=== PATIENT | female | born 1940 | race Caucasian/White ===

== ENCOUNTER 2020-09-15 02:49 | Inpatient (IN) | payer OTHER, BC ==
[~2020-09-15] VITALS: Ht 160 cm; Wt 44.5 kg
[2020-09-15 02:52] VITALS: BP 187/83
[2020-09-15] MEDS ORDERED: ALPRAZOLAM 0.50.5 M1 PO (05:25)
[2020-09-15] MEDS ORDERED: AMLODIPINE BESY10 MG PO (05:26)
[2020-09-15] MEDS ORDERED: LISINOPRIL10 MG PO (05:29)
[2020-09-15] MEDS ORDERED: NAPROSYN500 MG PO (05:29)
[2020-09-15] MEDS ORDERED: HUMIRA PEN40 MG/0.4 (05:29)
[2020-09-15] MEDS ORDERED: ZOCOR 20 MG TAB20 M1 PO (05:29)
[2020-09-15 06:41] LABS: HEMATOCRIT 39.9 % (37.0-47.0); HEMOGLOBIN 13.4 gm/dL (12.0-15.0); MCH 31.2 pg (26.0-34.0); MCHC 33.7 g/dL (28.0-37.0); MCV 92.8 fL (80.0-100.0); PLATELET COUNT 414 thou/uL (150-400); RDW 13.3 % (10.5-14.5); WBC 20.6 thou/uL (4.0-11.0)
[2020-09-15 06:52] LABS: CALCIUM 9.6 mg/dL (8.5-10.1); CREATININE 0.8 mg/dL (0.6-1.0); POTASSIUM 3.8 mmol/L (3.5-5.1)
--- NOTE | 2020-09-15 07:23 | EKG ---
[place] [address] [address] [facility] [place] [address] ELECTROCARDIOGRAM REPORT Name: PEDRITO CHOU Room #: REG [facility]#: [id number] Admission: 09/15/20 Attend Phys: Discharge: Date of : 44 Report #: [id number] [facility] ED Test Date: 2020-09-15 Test Time: 05:37:48 Pat Name: PEDRITO CHOU Department: Room: Gender: F Broadcast Engineer: abbi : 1940 Requested By: Ruiz Avendaño Order Number: [id number] MD: Felipe Gardiner Measurements Intervals [place] Rate: 98 P: 73 NE: 176 QRS: 41 QRSD: 82 T: 32 QT: 366 QTc: 468 Interpretive Statements Sinus rhythm LAE, consider biatrial enlargement Borderline T wave abnormalities No previous ECG available for comparison Electronically Signed On 09-15-2020 7:23:27 LOGISTICS PLANNER by eFlipe Gardiner [email or web address] <ELECTRONICALLY SIGNED> By: Felipe Gardiner MD, [facility] 09/15/20 0723 [id number] [id number] Felipe Gardiner MD, FACC /EPI
[2020-09-15 08:59] LABS: URINE BILIRUBIN NEGATIVE (Negative); URINE BLOOD NEGATIVE (Negative); URINE CLARITY CLEAR; URINE COLOR YELLOW; URINE GLUCOSE-RANDOM* NEGATIVE (Negative); URINE KETONES NEGATIVE (Negative); URINE LEUKOCYTES-REFLEX NEGATIVE (Negative); URINE NITRITE-REFLEX NEGATIVE (Negative); URINE PROTEIN (DIPSTICK) NEGATIVE (Negative); URINE UROBILINOGEN 0.2 E.U./dl (0.2-1.0)
[2020-09-15 09:36] LABS: APTT 24.5 Seconds (24.5-32.8); PROTIME 10.3 Seconds (9.3-11.4)
[2020-09-15 10:29] LABS: ANISOCYTOSIS SLIGHT
[2020-09-15 10:42] VITALS: BP 157/74
--- NOTE | 2020-09-15 10:43 | NUR ---
CALLED 4S AND NOTIFIED US THAT HAND OFF TOOL HAS BEEN SENT AND WILL CALL TO GIVE REPORT IN 10-15MIN. HANDOFF TOOL POSTPONED R/T TO CODE BLUE ASSISTANCE NEEDED BY RN IN ANOTHER PT ROOM.
[2020-09-15 11:23] VITALS: BP 157/74
--- NOTE | 2020-09-15 12:44 | NUR ---
PATIENT ADMITTED TO ROOM 437 PT ALERT XS 4. V.S 98.0 20 104 O2 SAT = 95 % RA. HEIGHT = 5' 3" WEIGHT 98 LBS. ARRIVED AT 1125 FROM ER. REPORT FROM ER NURSE. HAS RIGHT FA IV SITE WITH FLUIDS INFUSING ORDERED. HAD HEAD CT THAT WAS NEGATIVE. HAS LEFT FACIAL BRUISING TO ORBITAL AREA. HAS BRUISING TO LEFT ARM AND SHOULDER. NO OPEN AREA'S CALL TO DR POST FOR PRN PAIN MED AND PRN N&V MED. PT HAS REMAINED NPO. ADMISSION DONE IN COMPUTER.
--- NOTE | 2020-09-15 12:50 | NUR ---
PATIENT TAKEN WITH CHART AND CONSENT TO PRE-OP AT 1239
--- NOTE | 2020-09-15 15:46 | NUR ---
ASSESSMENT: CM REVIEWED CHART AND ATTEMPTED TO MEET WITH PT BUT SHE IS OUT OF THE ROOM FOR SURGERY. PTS SON IS IN THE ROOM. PT IS FROM THE [facility] AND WAS IN TOWN VISITING HER SON BUT FELL AND HAD A HIP FX. PT IS GOING TO BE STAYING WITH HER SON FOR AWHILE AT DISCHARGE. HE HAS 3 STEPS TO ENTER THE HOME AND ABOUT 12 STEPS WITH HANDRAILS TO A BEDROOM. SON REPORTS THEY ARE EITHER GOING TO GET A STAIR LIFT OR LET PATIENT STAY IN THEIR MASTER ROOM ON THE MAIN LEVEL. PT WAS INDEPENDENT WITH ADLS AND AMBULATION PRIOR TO ADMISSION AND HAS NO DME. NO PAST HX OF HH OR SNF. CM WILL MEET WITH PATIENT IN THE AM. CM WILL CONTINUE TO FOLLOW.
[2020-09-15 17:24] VITALS: BP 135/61
--- NOTE | 2020-09-15 17:31 | NUR ---
PATIENT RETURNED TO UNIT AT 1524 V.S 98.1 18 105 146/79 O2SAT 95%RA. PT GIVEN PRN ZOSYN AND PRN PAIN MED IV PUSH. FLUIDS INFUSING ORDERED. SON AT BEDSIDE.
[2020-09-15 19:43] VITALS: BP 141/68
--- NOTE | 2020-09-16 04:23 | NUR ---
ASSUMED CARE OF PT AT 1900. PT IS A/O X4 AND IS UP WITH ASSIST TO THE BSC OR WILL USE A BEDPAN. C/O NAUSEA AND VOMITTING. PRN NAUSEA AND PAIN MEDICATIONS PROVIDED DIRECTED. FALL PRECAUTIONS IN PLACE, CALL LIGHT IS WITHIN REACH. WILL CONTINUE TO MONITOR.
[2020-09-16 06:02] LABS: ABSOLUTE NEUTROPHILS 11.7 thou/uL (1.4-8.2); BASOPHILS 0.1 % (0.0-2.0); HEMATOCRIT 27.9 % (37.0-47.0); LYMPHOCYTES 7.6 % (24.0-44.0); MCH 31.7 pg (26.0-34.0); MCHC 33.2 g/dL (28.0-37.0); MCV 95.4 fL (80.0-100.0); POLYS 83.3 % (36.0-66.0); RBC 2.92 mil/uL (4.20-5.00); RDW 13.4 % (10.5-14.5)
[2020-09-16 06:11] LABS: HEMOGLOBIN 9.3 gm/dL (12.0-15.0); PLATELET COUNT 316 thou/uL (150-400)
[2020-09-16 06:20] LABS: ALBUMIN 2.8 g/dL (3.4-5.0); CALCIUM 8.4 mg/dL (8.5-10.1); CREATININE 1.2 mg/dL (0.6-1.0); MAGNESIUM 1.4 mg/dL (1.8-2.4); TOTAL BILIRUBIN 0.3 mg/dL (0.2-1.0); TOTAL PROTEIN 6.3 g/dL (6.4-8.2)
[2020-09-16 08:12] VITALS: BP 143/71
--- NOTE | 2020-09-16 14:27 | NUR ---
on-going assessment: CM REVIEWED CHART AND SPOKE WITH PT . [facility] HAS EVALUATED PT AND CAN ACCEPT HER AT DISCHARGE. CM NOTIFIED PTS SON WELL AND PT IS AGREEABLE. LIKELY DISCHARGE TO [facility] TOMORROW.
[2020-09-16 16:04] VITALS: BP 96/69
[2020-09-16 20:14] VITALS: BP 144/60
--- NOTE | 2020-09-17 02:56 | NUR ---
ASSUMED CARE AT 1900. PT IS A/O X4 AND IS PLEASANT AND COOPERATIVE. PT IS UP WITH ASSIST X1 TO THE BSC. C/O OF URINE RETENTION. CHASE DC'D. BLADDER SCAN READ 300. PT THEN VOIDED X1 AND FELT BETTER. RT IS WEENING PT OFF O2 AND HAS PT ON 1 LITER NC AT THIS TIME. C/O PAIN AND NAUSEA. PRN PAIN AND NAUSEA MEDICATION GIVEN DIRECTED. FALL PRECAUTIONS IMPLEMENTED. CALL LIGHT IS WITHIN REACH. WILL CONTINUE TO MONITOR.
[2020-09-17 05:52] LABS: HEMATOCRIT 22.2 % (37.0-47.0); MCH 31.1 pg (26.0-34.0); MCHC 32.9 g/dL (28.0-37.0); MCV 94.6 fL (80.0-100.0); RBC 2.35 mil/uL (4.20-5.00); RDW 13.1 % (10.5-14.5); WBC 14.7 thou/uL (4.0-11.0)
[2020-09-17 05:58] LABS: CALCIUM 8.4 mg/dL (8.5-10.1); CREATININE 1.2 mg/dL (0.6-1.0); POTASSIUM 4.3 mmol/L (3.5-5.1)
[2020-09-17 06:16] LABS: HEMOGLOBIN 7.3 gm/dL (12.0-15.0)
[2020-09-17 07:25] VITALS: BP 156/55
[2020-09-17 10:09] VITALS: BP 156/55
[2020-09-17] MEDS ORDERED: HYDROCODON-ACE1 EAC7 PO (11:28)
[2020-09-17] MEDS ORDERED: COLACE 100 MG100 MG PO (11:28)
[2020-09-17] MEDS ORDERED: MAG-AL PLUS SUS30 ML PO (11:28)
[2020-09-17] MEDS ORDERED: NORCO 10-325 T1 EACH PO (11:28)
[2020-09-17] MEDS ORDERED: ENOXAPARIN30 MG/0.1 SUBQ (11:28)
[2020-09-17] MEDS ORDERED: ACETAMINOPHEN325 M1 PO (11:28)
[2020-09-17] MEDS ORDERED: LIDOPATCH1 EACH TRANSDERM (11:28)
[2020-09-17] MEDS ORDERED: CYCLOBENZAPRINE5 MG PO (11:28)
[2020-09-17] MEDS ORDERED: SENNA8.6 MG PO (11:28)
--- NOTE | 2020-09-17 16:14 | NUR ---
PT ASSESSED AT START OF SHIFT. PT C/O URINE RECTENTION SO BLADDER SCANNED AND GOT 456MLS. PT VOIDED 250 AND FELT BETTER. REPORTED TO DR. POST AND REY STARTED. PT WORKED W/ THERAPY THIS AM AND SAT UP ON THE CHAIR FOR SEVERAL HOURS. C/O NAUSEA W/ PAIN MEDS SO ENC PT TO EAT SNACK W/ MED. TRANSFERING TO [facility] THIS AFTERNOON. REPORT GIVEN TO ЕЛЕНА.
--- NOTE | 2020-09-21 13:42 | O ---
[facility] [place] [address] OPERATIVE REPORT Name: PEDRITO CHOU Room #: 437-P [facility] IN M.R.#: [id number] Admission: 09/15/20 Attend Phys: Liang Flores MD Discharge: 09/17/20 Date of : 44 Report #: [id number] THIS REPORT FOR: cc: Nisha Vargas MD, Paula V. MD McCabe,Aniket Jeffries MD ~ DATE OF SERVICE: 09/15/2020 SERVICE: Orthopedics. FACILITY: [place]. SURGEON: Aniket Greenwood MD CARDIOLOGY TECHNICIAN: None. PREOPERATIVE DIAGNOSIS: Comminuted displaced right, left intertrochanteric hip fracture. POSTOPERATIVE DIAGNOSIS: Comminuted displaced right, left intertrochanteric hip fracture. PROCEDURE PERFORMED: Intramedullary nail fixation of left intertrochanteric hip fracture. COMPLICATIONS: None. DRAINS: None. SPECIMENS: None. ANESTHESIA: General with regional. FINDINGS: 1. Highly comminuted displaced fracture requiring additional direct reduction technique. 2. [employer] InterTan 13 mm x 125 degree short nail with 30 mm distal interlocking screw and 85 mm proximal cephalomedullary screw with 80 mm interlocking second screw. 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 She sustained a comminuted left intertrochanteric hip fracture. She was indicated for surgical treatment. The risks, benefits, alternatives and indications of surgery were discussed with her and her family in detail and they gave full [facility] [address] [place] [address] OPERATIVE REPORT Name: PEDRITO CHOU Room #: 437-P DIS IN M.R.#: [id number] Admission: 09/15/20 Attend Phys: Liang Flores MD Discharge: 09/17/20 Date of : 44 Report #: [id number] informed consent. Risks include but are not limited to pain, bleeding, infection, injury to nerves or blood vessels, malunion, nonunion, need for further surgery including revision as well as complications related to anesthesia up to and including mortality. Despite the risks, she wished to proceed. PROCEDURE IN DETAIL: After left lower extremity was correctly identified in the preoperative holding as operative extremity, the patient was taken to the operating room where general anesthesia was induced without complication with LMA. She was padded appropriately. Prophylactic antibiotics were administered at appropriate time. C-arm was brought in to identify the AP and lateral views. She reduced well with a standard reduction technique of abduction, traction, adduction and internal rotation on the AP view. However, she continued to have severe apex anterior angulation on the order of approximately 45-50 degrees with the displacement being through the neck segment. No indirect reduction maneuver could correct this in terms of extremity positioning. I was able to reduce the apex anterior angulation with direct anterior to posterior pressure on the femur at the time of positioning. This was determined to be the most effective means of maintaining an improved alignment. Ultimately, this would require a Hess elevator passed over the femur and over the anterior aspect of the femoral neck in order to direct it posteriorly. Left leg was prepped and draped in standard sterile fashion. Time-out procedure was performed. Under fluoroscopy, the insertion point of the guidepin was established after 1-inch incision was made proximal to the greater trochanter. The bone was quite soft and it was highly comminuted. Even the entry point was comminuted and displaced such that the guide pin when placed in the appropriate starting point glided easily into the proximal femur past the greater trochanter. She did have good cortical bone. She had very wide femoral canal and I wanted a complete nail filling of the canal if at all possible in order to prevent the nail from moving within the canal as I felt that this would give the best leverage to maintaining the reduction on the displaced neck segment. With the femoral curvature, I felt that the 13 mm short nail that was to be locked distally would give us the best chance of filling of the canal with secure fixation without risk of penetration distally. So, the nail was selected and was advanced and very good fill was achieved in the proximal femur. I advanced to appropriate level and then placed the guide pin into the shaft segment. During this is when the Hess was used to perform blunt dissection over the anterior aspect of the femur to the femoral neck and on AP and lateral views, I confirmed appropriate positioning of the Hess and then pressed the femoral neck posteriorly to improve the apex anterior malangulation. This was a lot able to improve the alignment to about 15 degrees, which really would not be correctable to lessen that without a substantial opened dissection and open reduction. I held this reduced and then advanced the guide pin across the fracture into the femoral head, achieving an appropriate tip apex distance for the [facility] [address] [place] [address] OPERATIVE REPORT Name: PEDRITO CHOU Room #: 437-P [facility] IN M.R.#: [id number] Admission: 09/15/20 Attend Phys: Liang Flores MD Discharge: 09/17/20 Date of : 44 Report #: [id number] cephalomedullary screw. The second screw hole was then drilled and with the anti-rotation device in place as well as the initial guide pin, I removed the Hess and confirmed that the alignment was maintained on the lateral view. I did place the Hess back into position and held it in this position while the other instrumentation was utilized to ensure that we did not have any loss of that reduction and then the proximal screw trajectory was overreamed to a 90 and we selected the 85 screw with a goal of achieving approximately 5 mm of compression. The 2 screws were then placed proximally. Excellent interlocking fixation was achieved on both AP and lateral, the reduction was maintained, and then the outrigger was used to place the distal locking screw. Final x-rays were taken and the outrigger was removed. The wound was thoroughly irrigated. The deep layer was closed with 0 Vicryl and the skin was closed with 2-0 Vicryl and skin wang. Sterile dressing was applied. The patient was awakened from anesthesia and taken to recovery room in stable condition. There were no complications. All counts were recorded as correct. <ELECTRONICALLY SIGNED> By: Aniket Greenwood MD 09/21/20 1342 [id number] Aniket Greenwood MD /nt
== END 2020-09-17 16:42 | DRG 480 ==
LOC: ER 02:49 → EROBS 10:38 → 4S 10:38
PROVIDERS: Emergency Medicine; Orthopaedic Surgery Sports Medicine; ADMIT Internal Medicine; ATTEND Internal Medicine
PROC: 0QS706Z Reposition Left Upper Femur with Intramedullary Internal Fixation Device, Open Approach (ICD-10-PCS; principal; 2020-09-15)
DX: S72.142A Displaced intertrochanteric fracture of left femur, initial encounter for closed fracture (principal); R65.11 Systemic inflammatory response syndrome (SIRS) of non-infectious origin with acute organ dysfunction; N17.0 Acute kidney failure with tubular necrosis; D62 Acute posthemorrhagic anemia; E46 Unspecified protein-calorie malnutrition; Z68.1 Body mass index [BMI] 19.9 or less, adult; M06.9 Rheumatoid arthritis, unspecified; I10 Essential (primary) hypertension; F17.210 Nicotine dependence, cigarettes, uncomplicated; M19.90 Unspecified osteoarthritis, unspecified site; F41.1 Generalized anxiety disorder; D72.823 Leukemoid reaction; D72.829 Elevated white blood cell count, unspecified; E78.5 Hyperlipidemia, unspecified; Z60.2 Problems related to living alone; Z98.49 Cataract extraction status, unspecified eye; Z20.822 Contact with and (suspected) exposure to COVID-19; W18.39XA Other fall on same level, initial encounter; Y93.89 Activity, other specified; Y92.098 Other place in other non-institutional residence as the place of occurrence of the external cause; Y99.8 Other external cause status; Z47.89 Encounter for other orthopedic aftercare; Z79.1 Long term (current) use of non-steroidal anti-inflammatories (NSAID); Z23 Encounter for immunization
CPT/HCPCS: 10195; 50010; 50101; 50386; 51412; 51538; 52304; 56525; 56526; 57092; 5718; 58101; 58168; 58471; 62110; 62900; 70005

== ENCOUNTER 2020-09-17 16:44 | Inpatient (IN) | payer OTHER, BC ==
[~2020-09-17] VITALS: Ht 162.6 cm; Wt 44.5 kg
[~2020-09-17 16:44] MED LIST: ACETAMINOPHEN325 M1 PO; ALPRAZOLAM 0.50.5 M1 PO; AMLODIPINE BESY10 MG PO; COLACE 100 MG100 MG PO; CYCLOBENZAPRINE5 MG PO; ENOXAPARIN30 MG/0.1 SUBQ; HUMIRA PEN40 MG/0.4; HYDROCODON-ACE1 EAC7 PO; LIDOPATCH1 EACH TRANSDERM; LISINOPRIL10 MG PO; MAG-AL PLUS SUS30 ML PO; NAPROSYN500 MG PO; NORCO 10-325 T1 EACH PO; SENNA8.6 MG PO; ZOCOR 20 MG TAB20 M1 PO
[2020-09-17 18:08] VITALS: BP 124/54
--- NOTE | 2020-09-17 19:52 | NUR ---
ASSUMED CARE OF PT AT 1645 WHEN PT BROUGHT TO UNIT BY PREVIOUS UNIT NURSING STAFF. RECEIVED REPORT FROM ЕЛЕНА REYES PRIOR TO PT TRANSFER. PT IS A&OX4 AND VITAL SIGNS ARE STABLE. PT DENIES PAIN AT THIS TIME. ADMISSION HX AND ASSESSMENT, HEIGHT AND WEIGHT, EDUCATION COMPLETED, PT SIGNED CONSENTS SIGNED, AND CONSULTS CALLED. PT RESTING IN BED, FALL PRECAUTIONS IN PLACE AND NURSING WILL CONTINUE TO MONITOR.
[2020-09-17 20:36] VITALS: BP 138/78
--- NOTE | 2020-09-18 02:21 | NUR ---
LEFT HIP STIFF AND SORE DESPITE HS PAIN MED. WEARING BRIEF AND INFORMING STAFF IMMEDIATELY WHEN SHE VOIDS, STATES SHE HAS SO FAR BEEN UNABLE TO TOLERATE SITTING ON BEDPAN OR COMMODE BECAUSE THE PAIN IS RIGHT ON THE SEAM OF WHERE SHE HURTS, PATIENT INSTRUCTED THAT WE MUST AT LEAST MAKE SURE THAT LEFT HIP ABD DRESSING STAYS CLEAN, DRY, AND INTACT. SCDs ON PER PATIENT REQUEST.
[2020-09-18 05:37] LABS: HEMATOCRIT 21.8 % (37.0-47.0); HEMOGLOBIN 7.3 gm/dL (12.0-15.0); MCH 31.5 pg (26.0-34.0); MCHC 33.4 g/dL (28.0-37.0); MCV 94.1 fL (80.0-100.0); RBC 2.31 mil/uL (4.20-5.00); WBC 11.8 thou/uL (4.0-11.0)
[2020-09-18 05:59] LABS: CALCIUM 8.7 mg/dL (8.5-10.1); CREATININE 0.7 mg/dL (0.6-1.0)
[2020-09-18 06:32] LABS: FOLIC ACID 15.4 ng/mL (8.6-58.9)
--- NOTE | 2020-09-18 06:38 | NUR ---
HEARTBURN TYPE PAIN DESPITE MYLANTA, SHE SAYS SHE ATE TOO MUCH FRUIT YESTERDAY AND THAT USUALLY AFFECTS HER. USING I.S. TO 1000, COACHED TO DO IT WITH SLOW STEADY INHALE
[2020-09-18 07:30] VITALS: BP 142/60
--- NOTE | 2020-09-18 14:51 | NUR ---
Alert and orientated X4. Calm, cooperative and compliant. States she is having indigestion/heartburn and nausea t/o night that was txed with mylanta and zofran. Additional dose of ondansetron given at 1150 for nausea. Hydrocodone given per prn order for pain of 9 in L hip after PT this AM. Breath sounds clear. Reg HR auscultated. Color pale pink with brisk capillary refill and palpable peripheral pulses. Incontinent of yellow urine in brief and pad. Hypoactive bowel sounds over soft, rounded abdomen. Dr. Flores notified of GI symptoms and no BM X4 days, states he will review meds and place orders. Poor appetite d/t nausea. Bruise around outer aspects of L eye. L hip drsg clean, dry and intact, lidocaine patch placed on upper L hip per order. Currently resting in room without s/o distress.
[2020-09-18 20:00] VITALS: BP 113/74
--- NOTE | 2020-09-19 04:10 | NUR ---
Assumed care of patient this pm shift. Patient in good spirits, calm and cooperative. Patient is alert and oriented x4. Takes medications whole with thin fluids. Incontinent of bowel and bladder. No bowel movement this evening. Patient is an assist x1 and rolls to the left and right to change brief. Calls when brief is soiled. Falls precautions in place. Assessment shows no signs of acute distress. States that she has pain in hip. Hydrocodone given. Patient sleeping through the night. We will continue to monitor per hospital policy.
[2020-09-19 08:00] VITALS: BP 142/56
--- NOTE | 2020-09-19 17:04 | NUR ---
ASSUMED CARE AT 0700 THIS MORNING. PT. IN BED. SHE GOT UP WITH PHYSICAL THERAPY. SHE STATED SHE WAS SO TIRED AFTER THERAPY, SHE RETURNED TO BED. HER BRIEF WAS CHANGED 3 TIMES TODAY. SHE WAS PLEASANT AND COOPERATIVE WITH THIS. SHE IS EATING FAIRLY WELL. HER SON CAME TO VISIT TODAY. PT. WAS HELPFUL IN TAKING HER MEDICATIONS. NO PROBLEMS NOTED.
[2020-09-19 19:59] VITALS: BP 148/63
--- NOTE | 2020-09-20 03:36 | NUR ---
PT AOX4. PT REPORTS DULL PAIN IN LEFT HIP. PT RECEIVING PRN PO NORCO Q4HR. PT DENIES SOB WHILE ON ROOM AIR. PT TOLERATING PO INTAKE OF FLUIDS AND REGULAR DIET WITHOUT ISSUE. PT REPORTS NAUSEA WITHOUT EMESIS AFTER TAKING NARCOTICS. PT RECEIVING PRN PO ZOFRAN Q6HR. PT RELUCTANT TO AMBULATE, REFUSING TO VOID PER BEDPAN OR BEDSIDE COMMODE DUE TO REPORTS OF INCREASED PAIN AND FEAR. PT VOIDING PER BRIEF, AWARE OF BOWEL AND BLADDER NEEDS, CAN EXPRESS NEED FOR PERSONAL HYGIENE AND ALLY CARE NEEDS. PT RESTING IN BED THROUGHOUT SHIFT, FREQUENT REPOSITIONING ENCOURAGED. PT NOTED TO SHIFT WITH MINIMAL ASSIST, REQUIRING PILLOWS FOR SUPPORT. PT ENCOURAGED TO NOTIFY STAFF FOR ALL NEEDS, CALL LIGHT WITHIN REACH, BED ALARM ON, BED IN LOWEST POSITION, FREQUENT MONITORING WILL CONTINUE.
[2020-09-20 05:54] LABS: HEMATOCRIT 24.2 % (37.0-47.0); HEMOGLOBIN 8.2 gm/dL (12.0-15.0); MCH 31.8 pg (26.0-34.0); MCHC 33.7 g/dL (28.0-37.0); MCV 94.2 fL (80.0-100.0); RBC 2.57 mil/uL (4.20-5.00); RDW 12.8 % (10.5-14.5); WBC 7.9 thou/uL (4.0-11.0)
[2020-09-20 05:55] LABS: CALCIUM 8.7 mg/dL (8.5-10.1); CREATININE 0.8 mg/dL (0.6-1.0); MAGNESIUM 1.7 mg/dL (1.8-2.4)
[2020-09-20 07:20] VITALS: BP 146/68
--- NOTE | 2020-09-20 08:43 | NUR ---
ADM HYDROCODONE 10MG PO FOR PAIN TO LEFT HIP OF 7 ON 1-10 SCALE. PT WORKING WITH THERAPY AT THIS TIME.
--- NOTE | 2020-09-20 08:51 | NUR ---
PT LYING IN BED THIS AM. PT STATED SHE HAD FELL VISITING FAMILY THAT SHE WAS TAKING HER DOG OUT AND HE WAS GOING INTO HER FAMILY BEDROOM AND DIDN'T WANT TO WAKE THEM UP AT 0100 AM AND GRABBED HIS TAIL AND FELL. SHE SAYS SHE LIVES AT [facility] ALONE. SHE HAS BRIEF ON FOR INCON. PT KNOWS WHEN SHE VOIDS. PT HAS NOT HAD BM SINCE 09/14/20. PT STAED SHE HAS PAIN TO LEFT HIP OF 7 ON 1-10 SCALE, DRESSING INTACT. PT HAS RA TO ALL HER JOINTS AND TAKES LIZ SHOTS WEEKLY. SHE SAID SHE IS DUE ON HER SHOT. PT USES BED PAIN TO VOID. PT STATED SHE IS PASSING GAS AND BELCHING, HEARD BOWEL SOUNDS IN ALL FULLER. PT HAS BRUISES TO LEFT SIDE OF FACE, ARMS BILATERALY. PT USES WALKER TO AMBULATE.
--- NOTE | 2020-09-20 10:33 | NUR ---
ADM ZOFRAN 4MG SUBLING DUE TO NAUSEA. PT WORKING WITH THERAPY IN BATHROOM.
--- NOTE | 2020-09-20 11:27 | NUR ---
INITIAL REHAB ASSESSMENT: Received consult. SW reviewed chart. Pt was admitted to on 09/17. SW spoke with pt via phone. Introduced role of SW. Pt is alert/orientated x 4. Pt reports she is currently staying with her son, who lives in [place]. Pt's son's home has 3 steps to enter and 12 steps inside. Pt has not used HH services or SNF placement in the past. Pt's PCP is Dr. Nisha Vargas. Pt states she will be staying in [place] when discharged. SW discussed possible discharge needs: HH services v Outpatient therapy. Team conference to be held tomorrow afternoon. SW is following to assist as needed with discharge planning.
--- NOTE | 2020-09-20 11:43 | NUR ---
TALKING TO PT AND SHE STARTED VOMITING YELLOW/GREEN LIQUID. PT STATED SHE DIDN'T LIKE THE TASTE OF THE EGGS AND THE FOOD DIDN'T GO DOWN. SHE SAID FIRST TIME SHE ATE AND VOMITING. REFUSING MAG CITRATE AT THIS TIME.
--- NOTE | 2020-09-20 13:02 | NUR ---
CALLED DR. CHILDRESS OFFICE FOR ORDERS FOR DRESSING CHANGES.
--- NOTE | 2020-09-20 13:16 | HC ---
[facility] [place] [address] CONSULTATION Name: PEDRITO CHOU Room #: 511-P [facility] IN .R.#: [id number] Admission: 09/17/20 Attend Phys: Bishop Vasquez MD Discharge: Date of : 44 Report #: [id number] THIS REPORT FOR: cc: Nisha Vargas MD, Paula V. MD Deutch,Mann Zabala. PhD ~ DATE OF SERVICE: 09/18/2020 NEUROBEHAVIORAL STATUS EXAM AGE: 80 ATTENDING PHYSICIAN: Bishop Vasquez MD ORGANIZATIONAL CONSULTANT: Mann Kelly, PhD CLINICAL PRESENTATION: The patient is a 80-year-old female admitted to the [facility] Rehabilitation Unit for a comprehensive inpatient rehabilitation program to improve functional mobility, activities of daily living and self-care and mental status secondary to a fall in her home. She reports having slipped on the floor, striking her head. She has black and blue bruises on the left side of her face. Her assessment on admission to the rehabilitation unit was a left IT hip fracture, status post intramedullary nailing on 09/15/2020, acute blood loss anemia, leukocytosis, rheumatoid arthritis, on chronic immunosuppression, hypertension, history of cataracts and constipation. A complete description of her medical condition and history can be found on her medical record. Neuropsychological consultation was requested to provide assistance in assessment of cognitive and emotional status and to provide recommendations and services. The patient reports having been living independently in her own home at the time of the fall. She is a high school graduate. She has one son. Her in 2005. 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 Prior to this recent fall, she reports having been independent with instrumental activities of daily living. She reports having 1 glass of wine daily. TECHNIQUES UTILIZED: Clinical interview, review of medical records, staff consultation and behavioral observation, mini mental status exam 2 standard version, clock drawing and verbal fluency assessment (letter and category). EXAMINATION FINDINGS: The patient was alert and cooperative with the assessment. She accurately described events surrounding her admission. There [facility] [address] [place] [address] CONSULTATION Name: EFFIEPEDRITO S Room #: 511-P [facility] IN ..#: [id number] Admission: 09/17/20 Attend Phys: Bishop Vasquez MD Discharge: Date of : 44 Report #: [id number] is no evidence of aphasia. Her thoughts are logical and goal oriented. She does not report auditory or visual hallucinations. Symptoms are reported to include food not tasting as good and also issues with nausea and her stomach distress contributing to difficulty with eating. She has been taking Humira for the rheumatoid arthritis. The patient reports having increasing anxiety in regard to her wellbeing and has been dreaming of her fall and different injuries. Suggested is an acute stress disorder that is associated with her fall. She does not report having had previous treatment for depression. Symptoms include increased anxiety, subjective depression with feelings of loneliness, sleep disorder and poor appetite. Variability in memory and word finding are described. Her performance on the MMSE 2 brief version is within normal limits with a raw score of 14/16. She was 1/3 for immediate recall of 3 items after a brief time delay and distraction. Performance on the MMSE 2 standard version was in the low average range with a raw score of 24/30, T score of 39, percentile rank of 14. She was 2/5 for serial sevens, suggesting difficulty with concentration and attention. The patient also had difficulty with copying a simple geometric design. Clock drawing was within normal limits. Verbal fluency assessment indicates letter fluency in the average range with a T score of 44 and percentile rank of 27. Deficits are noted in category fluency with a raw score of 25, T score of 30, percentile rank at 2. Overall, total fluency is in the low average range with a T score of 37 and percentile rank at 10. The patient is presenting with difficulty with immediate recall, attention/concentration and variability in executive functioning. This type of presentation can suggest the presence of a concussion as a result of her fall. 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 Unspecified anxiety disorder. RECOMMENDATIONS: The patient may benefit from a brief outpatient speech therapy to assist with compensatory strategies for variability in cognition that is a result of concussion. The use of relaxation techniques will also assist in overall adjustment. Variabilty in cognition can also be associated with medication that is sedating, e.g., cyclobenzaprine, hydrocodone and Xanax. Consider the use of an antidepressant. I will follow as needed for psychological counseling to assist in adjustment. [address] [address] CONSULTATION Name: PEDRITO CHOU Room #: 511-P [facility] IN M.R.#: [id number] Admission: 09/17/20 Attend Phys: Bishop Vasquez MD Discharge: Date of : 44 Report #: [id number] Thank you very much for allowing me to provide the consultation on this patient. <ELECTRONICALLY SIGNED> By: Mann Kelly, PhD 09/20/20 1316 1929 24 Mann Kelly, PhD /nt
--- NOTE | 2020-09-20 13:19 | NUR ---
GAVE PT FIRST DOSE OF PROTONIX. PT WANTING A PAIN PILL ALSO. ADM HYDROCODONE 10MG PO FOR PAIN OF 9 ON 1-10 SCALE TO LEFT HIP. PT TRYING MAG CITRATE AND SHE SAYS IT HAS LEMON IN IT AND SHE PROB WONT BE ABLE TO DRINK IT. SHE SAID SHE STARTED THIS PROBLEM WITH ACID IN HER STOMACH LAST WEEK WHEN SHE ATE A LOT OF FRUIT. PT STATED SHE HAS A BLISTER ON HER TONGUE. LOOKED AND SEEN SMALL BLISTER ON TIP OF TONGUE. PT STATED SHE COULD TOLERATE PUDDING OR ICE CREAM.
--- NOTE | 2020-09-20 14:59 | NUR ---
PT REFUSING TO DRINK MAG CITRATE. PT STATED SHE HAD A BITE OF ICE CREAM AND DIDN'T GO DOWN WELL. PT FINISHED GETTING ABD XRAY AND WAS ABLE TO TURN WITHOUT ANY ISSUES. PT STATED SHE WILL TAKE A SUPPOSITORY FOR BOWELS.
--- NOTE | 2020-09-20 15:45 | NUR ---
ASSISTED PT WITH BRIEF CHANGE AND SHE TOLERATED TURNING FOR A SHORT TIME. INSERTED DULCOLAX SUPP WITHOUT ANY RESISTANCE. CHANGED DRESSING TO LEFT HIP. BRANDIE INTACT AND INCISION IS WELL APPROXIMATED. NO SIGNS OF DRAINAGE, REDDNESS, OR SWELLING. APPLIED BARRIER CREAM TO BUTTOCKS, NO SIGNS OF BREAKDOWN, SKIN INTACT AND NO REDDNESS NOTED.
--- NOTE | 2020-09-20 17:23 | NUR ---
PT STATED WHEN SHE HAD THE LAST ZOFRAN SUBLINGUAL SHE COULDN'T GET IT DISOLVED AND THEN SHE DRANK THE MAG CITRATE AND THATS WHEN SHE GOT SICK. PT STATED SHE DIDN'T WANT TO EAT ANY DINNER DUE TO THE NAUSEA AND ACID IN HER STOMACH.
--- NOTE | 2020-09-20 17:25 | NUR ---
ASSISTED PT WITH TRYING TO HAVE BM. PT HAD SOFT BROWN BM AND GOT OUT MED AMOUNT. PT DIDN'T WANT TO EAT ANY DINNER. PT STATED PAIN IS 10 ON 1-10 SCALE. ADM NORCO 10MG PO AND ZOFRAN 4MG PO FOR NAUSEA AND PAIN.
--- NOTE | 2020-09-21 00:22 | NUR ---
ASSUMED CARE OF PT AT 1915 ON 09/20/20. PT IS A&OX4. IS ON ROOM AIR. REPORTED PAIN IN LEFT HIP THAT IS BEING MANGAGED WITH ORAL PAIN MEDS, COLD THERAPY & OTHER THERAPUETIC TECHNIQUES. HIP PRECAUTIONS MAINTAINED. DOMINGO WYLIE C/D/I. PT IS ABLE TO TURN SELF IN BED. REFUSES TO GO WITHOUT BRIEF. IS CONTINENT, BUT URINATES IN BRIEF & CALLS FOR ASSISTANCE WHEN WET. EDUCATION PROVIDED. PT REPORTS THAT IT IS TO PAINFUL TO USE THE BEDPAN OR GET UP TO BEDSIDE COMMODE. REPORTS NAUSEA WITH MOVEMENT & PAIN. PT IS CURRENTLY ASLEEP. CALL LIGHT WITHIN REACH. FALL PRECAUTIONS & HOURLY ROUNDING CONTINUED THIS SHIFT. LABS REVIEWED. VITALS ASSESSED. WILL CONTINUE TO MONITOR.
[2020-09-21 07:42] VITALS: BP 132/64
--- NOTE | 2020-09-21 12:37 | NUR ---
team conference: pt admitted to rehab w/left hip fraction. pt presents w/anxiety at times and apprehensive about working w/pt. pt did 4 stairs w/lives. pt stated her son, whom she live with get a chair lift or switch bedroom so she has one on the main level. son is retired. pt will need fww at d/c and has shower bench. dc plan: pt will need fww ordered w/[employer] d/c date of 09/30 on . hh: rn, pt, ot.
--- NOTE | 2020-09-21 17:00 | NUR ---
PT ALERT AND ORIENTED TIMES FOUR. VSS. PT C/O PAIN AND NAUSEA PRN MEDIVATIONS FOR BOTH GIVEN WITH GOOD RELEIF. PT MEDS WELL, ONLY EATS SMALL PORTIONS OF MEALS. PT WORKED WELL WITH PT/OT TODAY. PT ABLE TO STAND ON SIDE OF BED WITH ASSIST OF ONE. PT SLOWLY PROGRESSING TOWRADS POC GOALS.
[2020-09-21 19:50] VITALS: BP 136/61
--- NOTE | 2020-09-21 19:50 | NUR ---
STATES PAIN MED EFFECTIVE FOR LEFT HIP PAIN, LIDODERM PATCH REMOVED, BRIEF CHANGED, HAD MULTIPLE BMs TODAY, TOOK MIRALAX IN WATER BECAUSE THEY STILL WERE HARD AND HARD TO PUSH OUT. LEFT HIP [place] DRESSING DRY AND INTACT
--- NOTE | 2020-09-22 02:00 | NUR ---
MODERATE AMOUNT OF LOOSE DARK STOOL, MEDICATED FOR C/O PAIN AND NAUSEA
[2020-09-22 05:26] LABS: HEMATOCRIT 25.8 % (37.0-47.0); HEMOGLOBIN 8.8 gm/dL (12.0-15.0); MCH 31.9 pg (26.0-34.0); MCHC 34.1 g/dL (28.0-37.0); MCV 93.3 fL (80.0-100.0); RBC 2.77 mil/uL (4.20-5.00); RDW 13.2 % (10.5-14.5)
[2020-09-22 08:00] VITALS: BP 146/63
--- NOTE | 2020-09-22 15:00 | NUR ---
ASSUMED CARE AT 0700. PT IS ALERT AND ORIENTATED. PAIN IS STABLE AND CONTROLLED WITH HYDROCODONE. TAKES ZOFRAN ALONG WITH HER. COMPLAINED OF DIZZINESS. JACQUELIN PADGETT NOTED. REQUESTED TO CONSULT RHEUMATOLOGY TO MANAGE HER RA. PT IS ON HOLD HER HUMIRA AND SPOKE TO JIMI PADGETT WITH RHEUM, TO CONT WITHOLDING AT LEAST AFTER 2 WEEKS POST SURGERY AND TO MAKE SURE THE INCISION IS HEALING. SHE WILL SEE PT TOMORROW. PT PARTICIPATING IN THERAPY MUCH TOLERATED. WOUND TO L HIP INTACT WITH DRESSING. APPETITE FAIR, WILL CONT TO MONITOR.
[2020-09-22 19:25] VITALS: BP 124/49
--- NOTE | 2020-09-23 02:18 | NUR ---
PAIN MED FOR LEFT HIP ADEQUATE, HAS NOT NEEDED NAUSEA MEDICINE THIS SHIFT. INCONTINENT OF URINE, THINKS SHE WILL SOON BE ABLE TO GET UP AND USE TOILET OR BSC, BUT THE LAST TIME SHE TRIED SHE FELT IF THE EDGE OF THE SEAT WAS RIGHT ON THE MOST PAINFUL PART OF HER HIP.
[2020-09-23 08:00] VITALS: BP 138/55
--- NOTE | 2020-09-23 13:42 | NUR ---
CM FAXED REFERRAL TO [facility]. [phone].
--- NOTE | 2020-09-23 15:00 | NUR ---
ASSUMED CARE AT 0700. ALERT AND ORIENTATED. PAIN IS MANAGEABLE WITH HYDROCODONE. PT WAITED TOO LONG FOR HER PAIN MEDS AND WAS IN EXCRUATING PAIN. PT ENCOURAGED TO TAKE PAIN MEDS PRIOR TO THERAPY. PT PREFERS TO TAKE HER NORCO AND ZOFRRAN TOGETHER. APPETITE FAIR. PT HAS NOT HAVE A BM TODAY AND REQUESTED FOR HER STOOL REGIMEN. PARTICIPATING IN THERAPY MUCH TOLERATED. SON BROUGHT HOME MED, DICLOFENAC CREAM. OK PER PETE CRUISE AGENT WITH RHEUMATOLOGY TO USE AND TO HOLD HUMIRA FOR NOW TILL AFTER 2 WEEKS POST SURGERY AND WOUND IS HEALED. PT VERBALIZES UNDERSTANDING. MEDS APPROVED BY PHARMACIST. WILL CONT TO MONITOR.
[2020-09-23 19:47] VITALS: BP 150/59
--- NOTE | 2020-09-24 00:38 | NUR ---
PATIENT WAS UPSET WHEN I ASSUMED CARE OF HER AT 1900. SHE WAS ANXIOUS AND FRUSTRATED. SHE STATES SHE HAD ASKED THE SYSTEMS ARCHITECT OVER AN HOUR AGO TO TURN HER SCD'S ON AND SHE REFUSED TO. AT THIS POINT I APOLOGIZED TO HER AND HELPED HER GET COMFORTABLE AND DID INCONTINENT CARE AND THEN REAPPLIED HER SCD'S AND TURNED THEM ON. PATIENT'S BUTTOCKS WERE SORE FROM SITTING AND BARRIER CREAM APPLIED. NO BREAKDOWN. JUST SOME PINKNESS. REPOSITIONED PATIENT AND LIDOCAINE PATCH REMOVED FROM LEFT LEG. DRESSING ON L LEG DRY AND INTACT. VSS. HYDROCODONE 10/325MG GIVEN WITH HER HS MEDS AT 2048. SHE TOOK MEDS WHOLE WITH APPLESAUCE. PATIENT WITH C/O OF ACHEY HANDS AND WANTS TO MAKE SURE WE APPLY VOLTAREN CREAM IN MORNING BEFORE THERAPY. SHE REFUSED ANY TONIGHT. PATIENT CALMED AND WAS PLEASANT. ALPRAZOLAM 0.5MG GIVEN SCHEDULED WITH HS MEDS. PATIENT HAS BEEN SLEEPING COMFORTABLY SO FAR TONIGHT. ROUTINE ROUNDS TO ASSESS SAFETY AND STATUS OF PATIENT.
[2020-09-24 08:00] VITALS: BP 140/64
--- NOTE | 2020-09-24 13:26 | NUR ---
SPOKE WITH BHAVESH IN INTAKE AT [facility] THEY CAN ACCEPT AT DC ANTICIPATE DC 09/30.
[2020-09-24 13:27] VITALS: BP 140/64
--- NOTE | 2020-09-24 16:31 | NUR ---
PATIENT WAS IN BED AWAKE THIS MORNING WHEN CARE ASSUMED, ALERT, AND ORIENTED X 3-4, ABLE TO VOICE NEED. LCTA, RESP EVEN/UNLABORED, NO SOA/CYANOSIS NOTED. PATIENT USES WALKER FOR MOBILITY WITH ASSIT OF ONE STAFF. DRESSING IN PLACE TO LEFT HIP, NO DRAINAGE NOTED. PRN HYDROCODONE GIVEN PRIOR TO THERAPY X 2 PER PATIENT'S REQUESTED, WITH POSITIVE EFFECT. PATIENT IS EATING MEALS, AND DRINKING FLUID WELL. PATIENT TAKES MEDICATION WHOLE WITHOUT DIFFICULTY. SCD IN PLACE WHILE IN BED. NO SIGN OF ACUTE DISTRESS NOTED AT THIS TIME, CALL LIGHT IN REACH, WILL MONITOR CONTINUE TO MONITOR.
[2020-09-24 20:00] VITALS: BP 124/64
--- NOTE | 2020-09-25 03:50 | NUR ---
Assumed care of patient this pm shift. Patient calm and cooperative. Alert and oriented x4. Takes medications whole with thin fluids. Ambulates with assistance. Patient is considered a falls risk. Falls precautions in place. Patient had one large, black tarry bowel movement this evening. Patient is not continent of bowel and bladder. Assessment shows no signs of acute distress. We will continue to monitor per hospital policy.
[2020-09-25 07:30] VITALS: BP 152/51
[2020-09-25 11:12] VITALS: BP 108/62
--- NOTE | 2020-09-25 19:35 | NUR ---
Alert and orientated X4. Calm, compliant and cooperative. Pain in L hip t/o day, medicated with lidocaine patch and hydrocodone. Spent most of day in bed with exception of therapy sessions. Breath sounds clear. Reg HR auscultated. Color pale pink with brisk capillary refill and palpable peripheral pulses. Incontinent of yellow urine and soft drk green stool today. Active bowel sounds over soft, flat abdomen. Son here for visit today, brought food for lunch. Tammy per L hip intact without s/o infection. Drsg changed and lidocaine patch applied.
[2020-09-25 19:37] VITALS: BP 114/45
--- NOTE | 2020-09-26 01:49 | NUR ---
SLEEPING AT THIS TIME AFTER FLEXERIL GIVEN WITH PAIN MED AT 2230, INCONTINENT OF BOWEL AND BLADDER APPROX 2100. LEFT HIP DRESSING CLEAN, DRY, INTACT. NO C/O NAUSEA TODAY
[2020-09-26 09:47] VITALS: BP 128/41
--- NOTE | 2020-09-26 13:22 | NUR ---
ASSUMED CARE AT 0700 THIS MORNING. PT. IN BED. SHE IS A&OX4. SHE DOES NOT GET UP TO USE THE RESTROOM. SHE URINATES IN HER BRIEF AND THEN TELLS STAFF SHE NEEDS CHANGED. SHE HAS DONE THIS 2 TIMES TODAY UP TO THIS MOMENT. SHE IS PLEASANT AND COOPERATIVE WITH STAFF. SHE TOOK HER MEDS WITHOUT PROBLEMS. SHE HAS HAD 2 VERY DARK BARELY FORMED STOOLS. SHE DID NOT RECEIVE ANY LAXATIVES OR STOOL SOFTNERS TODAY.
[2020-09-26 19:58] VITALS: BP 102/60
--- NOTE | 2020-09-27 01:50 | NUR ---
RESTING WELL AFTER TAKING FLEXERIL WITH PAIN MED SHE DID LAST NIGHT. NOTES HER PAIN IS WORSE THAN USUAL SINCE SHE IS OFF HUMIRA IN ORDER TO HEAL. PATIENT HAS BEEN INCONTINENT OF URINE, WEARING BRIEF. SKIPPED HS DOSES OF COLACE AND MIRALAX. LEFT HIP DRESSING DRY AND INTACT
[2020-09-27 07:20] VITALS: BP 143/61
--- NOTE | 2020-09-27 11:09 | NUR ---
PT CARE ASSUMED AT 0700. A&Ox4. PT INCONTINENT TO BOWEL AND BLADDER. SURGERY SITE DRESSING CHANGED. NO SIGNES OF REDNESS OR EDEMA. KNEE HIGH JULIENNE HOSES IN PLACE. HIP PRECOUTIONS IN PLACE. PT REFUSED LIDONCAIN PATCH AND MIRALAX. UP WITH THERAPY. CALL LIGHT IN REACH. FALL PROTOCOL IN PLACE. WILL CONTINUE TO MONITOR.
--- NOTE | 2020-09-27 11:13 | NUR ---
RUPINDER reviewed chart. Discharge home is planned for , 09/30 with Rusty . RUPINDER spoke with Mimi in intake at to provide update. RUPINDER is following to assist as needed with discharge planning.
[2020-09-27 19:44] VITALS: BP 132/63
--- NOTE | 2020-09-27 23:31 | NUR ---
PATIENT RESTING IN BED WHEN I ASSUMED CARE OF PATIENT AT 1900. PATIENT IS A/0X4. SHE STATES HER LEFT HIP PAIN IS 4/10. PATIENT HAS SURGICAL INCISION CLOSED WITH BRANDIE ON LEFT OUTER LEG WITH ABD DRESSING ON AND INTACT. PATIENT STATES SHE REFUSED TO WEAR LIDOCAINE PATCH BECAUSE SHE FELT SHE DIDN'T NEED IT TODAY FOR PAIN RELIEF. SHE CONTINUES WITH HYDROCODONE PRN FOR PAIN RELIEF. PATIENT HAD HYDROCODONE 10MG/325MG AT HS WITH HS MEDS. SHE TOOK THEM WHOLE WITH WATER. PATIENT IS INCONTINENT OF BOWEL AND BLADDER BUT DOES ASSIST IN INCONTINENCE CARE BY CLEANING HERSELF AND HELPING TO PLACE NEW BRIEFS ON. PATIENT WEARS SCD'S ON BLE'S MOST OF DAY AND ALL NIGHT PER PATIENT REQUEST. NO JULIENNE HOSE ON HER TONIGHT. NO EDEMA NOTED. VSS. ROUTINE ROUNDS TO ASSESS STATUS AND SAFETY OF PATIENT. BED ALARM IS ON. FLEXERIL 5MG ALSO GIVEN TO PATIENT PER REQUEST AT BED TIME. SHE HAS BEEN CALM AND COOPERATIVE AND PLEASANT TO WORK WITH.
[2020-09-28 05:42] LABS: ABSOLUTE NEUTROPHILS 5.9 thou/uL (1.4-8.2); EOSINOPHILS 3.7 % (0.0-3.0); HEMATOCRIT 26.8 % (37.0-47.0); LYMPHOCYTES 19.8 % (24.0-44.0); MCH 31.8 pg (26.0-34.0); MCHC 33.4 g/dL (28.0-37.0); MCV 95.1 fL (80.0-100.0); MONOCYTES 9.3 % (1.0-8.0); PLATELET COUNT 643 thou/uL (150-400); POLYS 66.2 % (36.0-66.0); RBC 2.82 mil/uL (4.20-5.00); RDW 13.9 % (10.5-14.5); WBC 8.9 thou/uL (4.0-11.0)
[2020-09-28 05:52] LABS: CALCIUM 8.6 mg/dL (8.5-10.1); CREATININE 0.8 mg/dL (0.6-1.0); MAGNESIUM 1.6 mg/dL (1.8-2.4); POTASSIUM 4.2 mmol/L (3.5-5.1)
[2020-09-28 07:30] VITALS: BP 130/63
--- NOTE | 2020-09-28 08:39 | NUR ---
PT INCON. THIS AM OF BOWEL. PT KNOWS WHEN SHE HAS TO VOID OR HAVE BM. PT TELLS STAFF TO ASSIST WITH GETTING CLEAN. PT HAD DARK STOOL, PT TAKING IRON. PT TOOK MEDS THIS AM WITHOUT ANY ISSUES. PT LEFT HIP DRESSING INTACT, NO SIGNS OF INFECTION IE REDDNESS, SWELLING, OR DRAINAGE. ADM HYDROCODONE 10MG PO FOR PAIN TO LEFT HIP OF 9 ON 1-10 SCALE. PT HAS SCD'S ON BILATERALLY.
--- NOTE | 2020-09-28 11:43 | NUR ---
MARIELENA WALKER AND INFORMED HIM [facility] WILL CONTACT PT AT HOME TO ARRANGE VISIT, AND THAT MARIELENA PROVIDED HIS ADDRESS AND PHONE TO [facility]. BI WILL PROVIDE TRANSPORTATION AT D/C. PT AGREEABLE TO PLAN.
--- NOTE | 2020-09-28 13:41 | NUR ---
ADM HYDROCODONE 10MG PO FOR PAIN TO LEFT HIP OF 9 ON 1-10 SCALE. PT SON AT BEDSIDE ENCOURAGING HER. SHE SAID WHO IS THE MOTHER HER AND WHO IS THE CHILD.
--- NOTE | 2020-09-28 18:20 | NUR ---
ADM HYDROCODNE 10MG PO FOR PAIN TO LEFT HIP AND ARTHRITIS PAIN TO JOINTS OF 8 ON 1-10 SCALE.
[2020-09-28 19:08] VITALS: BP 109/41
--- NOTE | 2020-09-29 01:43 | NUR ---
PATIENT IS ALERT X 4. SKIN WARM AND DRY. RESP EVEN AND UNLABORED. HAS ALEFT HIP PINNING DRESSING DRY AND INTACT. IN CONT BOWEL AND BLADDER . REFUSES TO GET UP TO BATHROOM, JUST WETS HER BREIF. GOOD SKIN CARE. HAS A LEFT BRANDIE NOTED. HAS PT/ST/OT ORDERED. UP WITH 1 PERSON ASSIST WITH WALKER. TAKES DIET WELL. TAKES PAIN MED AND MUSCLE RELAXANT ANT 2200. DENIES ANY NEEDS. REQUESTED PAIN MED FOR LEFT HIP PINNING. CONT PLAN OF CARE. CONT PAIN CONTROL.
[2020-09-29 08:46] VITALS: BP 124/63
--- NOTE | 2020-09-29 12:10 | NUR ---
Script for FWW on chart. Provider Plus liason to issue FWW to the pt prior to her dc on Sunday. [facility] aware of anticipated dc and will need final orders faxed.
[2020-09-29 12:11] VITALS: BP 140/64
--- NOTE | 2020-09-29 15:21 | NUR ---
PATIENT HAS BEEN MEDICATED FOR PAIN OFTEN ORDERED, AND WAS ALSO GIVEN A CYCLOBENZAPRINE FOR MUSCLE SPASMS PER PER REPORT OF A "CATCHING" PAIN IN LEFT HIP DURING AMBULATION OR WB TODAY. CYCLOBENZAPRINE INCREASED, AND DR. CHILDRESS HAS BEEN CALLED X 2. CURRENTLY ON HOLD AWAITING RECOMMENDATIONS PER ORTHOPEDIC MD. XRAYS HAVE BEEN COMPLETED TODAY, AND THESE ARE WNL PER REPORT. PATIENT HAS VOIDED AND DEFECATED IN HER BRIEF TODAY BY CHOICE AND IS AWARE WHEN SHE IS USING THE BRIEF.
--- NOTE | 2020-09-29 15:29 | PLAN ---
[facility] [place] [address] REHAB UNIT PLAN OF CARE Name: PEDRITO CHOU Room #: 511-P ADM IN M.R.#: [id number] Admission: 09/17/20 Attend Phys: Bishop Vasquez MD Discharge: Date of : 42 Report #: [id number] THIS REPORT FOR: cc: Nisha Vargas MD, Paula V. MD Smithson,Bishop Ruvalcaba MD ~ DATE OF SERVICE: 09/18/2020 PROGRESS NOTE AND OVERALL PLAN OF CARE SUBJECTIVE: The patient was seen earlier, was in no distress. She has had some prior nausea that was noted postoperatively and the hospitalist service is involved. Temperature 37.1, pulse 98, respirations 16, blood pressure 142/60. She is pleasant. The patient was seen earlier. Transfers have been min assist with gait min assist 5 feet front-wheeled walker. In occupational therapy, lower body dressing is max assist, upper body dressing is supervision. ASSESSMENT: 1. Left hip intertrochanteric fracture, status post intramedullary nail, 09/15/2020, weightbearing as tolerated. 2. Acute blood loss anemia. 3. Leukocytosis. 4. RA, on chronic immunosuppression. 5. Postoperative nausea with the hospitalist service involved. We will defer to them. 6. Hypertension. 7. History of cataracts. 8. Constipation. PLAN: The overall plan of care is based on the preadmission screen and information garnered from therapy assessments. 1. Estimated length of stay is probably at least 10-14 days pending progress. 2. Medical prognosis is reasonably good. 3. Anticipated interventions includes the interdisciplinary acute inpatient rehabilitation program. 4. Anticipated functional outcomes would be for the patient to become modified independent with transfers, mobility and ADLs that she can hopefully return back to the home setting. Goal would be independent at a walker level. 5. Discharge destination would be back to the home setting. She plans to stay in the [place] area at her son's house at the time of discharge. 6. Expected therapy by discipline includes PT and OT 1 and 1-1/2 hours per day each five days a week throughout the duration of the acute inpatient rehabilitation stay. The patient's prognosis for significant practical improvement within a reasonable period of time appears good. Given the patient's complex medical condition and risk of further medical complications, rehabilitation services [address] [address] REHAB UNIT PLAN OF CARE Name: JESÚS CHOUIL Edita Room #: 511-P [facility]#: [id number] Admission: 09/17/20 Attend Phys: Bishop Vasquez MD Discharge: Date of : 44 Report #: [id number] could not be safely provided at a lower level of care such as a long term facility. <ELECTRONICALLY SIGNED> By: Bishop Vasquez MD 09/29/20 1529 1609 1627 Bishop Vasquez MD /lito
--- NOTE | 2020-09-29 19:00 | NUR ---
ORDERS RECIEVED FROM DR. CHILDRESS TO REMOVE BRANDIE, AND TO DO A HIP CT SCAN WITHOUT CONTRAST. THIS WAS COMPLETED, STERI STRIPS APPLIED TO INTACT INCISION AND LEFT ALVAREZ WITH NO DRAINAGE NOTED. BRUISING AND EDEMA STILL SIGNIFICANT, BUT PT TOLERATED VERY WELL. NO FURTHER C/O SEVERE PAIN AND PT RESTING WELL IN THE BED. PT REMAINS INCONTINENT AT THIS TIME. WHEN DISCUSSING HOW SHE WILL HANDLE THIS AT HOME, THE POTENTIAL OF NEEDING LONGER TERM SKILLED CARE WAS IMMEDIATELY REJECTED BY PT, AND SHE STATED, "MY DAUGHTER IN LAW WILL HELP ME UNTIL I CAN DO THINGS MYSELF. SKILLED IS NOT AN OPTION." THIS WAS NOTED TO THE MD. REPORT GIVEN TO ONCRUBY CHRISTIANSEN.
[2020-09-29 19:33] VITALS: BP 119/59
--- NOTE | 2020-09-30 03:25 | NUR ---
SKIN INTACT, BRUISED, INCISION WELL APPROXIMATED WITH INTACT STERISTRIPS ON LEFT HIP. PATIENT CONTINUES TO BE INCONTINENT OF BOWEL AND BLADDER, MORE OFTEN AWARE OF VOIDS AND CALLS QUICKLY TO CHANGE BRIEF. ROBAXIN ADDED TO HYDROCODONE TO MANAGE PAIN
[2020-09-30 08:00] VITALS: BP 123/64
--- NOTE | 2020-09-30 10:13 | NUR ---
ASSUMED CARE AT 0700. PATIENT IS ALERT AND ORIENTED X4. PATIENT MAGANA'S, STORAGE ENGINEER ARE EQUAL. LUNGS ARE CLEAR. ABD IS SOFT WITH BSX4. PATIENT IS INCONTINENT OF URINE AND ASKS FOR HER BRIEF TO BE CHANGED. PLAN IS TO HAVE HER UP TO BSC TODAY. PATIENT HAS STERISTIPS TO HER LEFT HIP. UP IN BED FOR MEALS. FALL AND SAFETY PROTOCOLS IN PLACE. C/O LEFT HIP PAIN. MEDICATED WITH PRN PAIN MED. CONTINUES TO PROGRESS SLOWLY TOWARDS D/C GOALS. WILL CONTINUE TO MONITER.
[2020-09-30 19:40] VITALS: BP 149/79
[2020-09-30 22:35] VITALS: BP 137/68
--- NOTE | 2020-10-01 03:48 | NUR ---
ASSESSED AT START OF SHIFT. PT A&OX4. C/O HIP PAIN MANAGED BY PO PAIN MEDS. PT WEARS BRIEF CALLS OUT TO GET CHANGED WHEN BRIEF IS WET. HAD X3 BM SMEARS. PT ABLE TO MOVE ALL EXT. ANTICIPATING DC TOMORROW. FALL PREC IN PLACE AND CALL LIGHT AT REACH WILL CONT TO MONITOR.
[2020-10-01 07:20] VITALS: BP 137/60
--- NOTE | 2020-10-01 10:31 | NUR ---
PT WILL NOT DISCHARGE TODAY POSS DC OVER WEEKEND IF PT DISCHARGES PLEASE FAX DC ORDERS/SUMMARY TO [facility] FAX:[phone] AND CALL [phone].
[2020-10-01] MEDS ORDERED: MIRALAX17 GM PO (11:00)
[2020-10-01] MEDS ORDERED: VITAMIN D325 MC1 PO ×2 (11:00→12:13)
[2020-10-01] MEDS ORDERED: IRON325 PO ×2 (11:00→12:13)
[2020-10-01] MEDS ORDERED: METHOCARBAMOL500 M2 PO ×2 (11:00→12:13)
[2020-10-01] MEDS ORDERED: FOLIC ACID1 MG PO ×2 (11:00→12:13)
[2020-10-01] MEDS ORDERED: TIROSINT75 MCG PO (11:00)
[2020-10-01] MEDS ORDERED: PROTONIX 20 MG20 MG PO ×2 (11:00→12:13)
[2020-10-01] MEDS ORDERED: COLACE 100 MG100 MG PO ×2 (11:00→12:13)
[2020-10-01] MEDS ORDERED: HUMIRA PEN40 MG/0.4 SUBQ (11:03)
[2020-10-01] MEDS ORDERED: ASPIRIN EC325 M1 PO ×2 (11:06→12:13)
[2020-10-01] MEDS ORDERED: ZOCOR 20 MG TAB20 M1 PO (12:13)
[2020-10-01] MEDS ORDERED: SENNA8.6 MG PO (12:13)
[2020-10-01 12:30] VITALS: BP 140/64
--- NOTE | 2020-10-01 15:37 | NUR ---
Alert and orientated X4. Calm, cooperative and compliant. Breath sounds clear. Reg HR auscultated. Color pale pink with brisk capillary refill and palpable peripheral pulses. Incontinent of yellow urine and dark brown/green stool. Active bowel sounds over soft, flat abdomen. Initially said pain was 0 but then requested pain med for pain of 7 at 0945 and 1330. Incision per L hip intact with steristrips, no s/o infection. Discharge instructions given to pt. and son. Verbalize understanding. DCed per WC with belongings to son's vehicle to home. No s/o distress.
== END 2020-10-01 14:54 | disposition home health service (06) | DRG 536 ==
PROVIDERS: Internal Medicine; Nurse Practitioner; Nurse Practitioner Family; ADMIT Physical Medicine & Rehabilitation; ATTEND Physical Medicine & Rehabilitation
DX: S72.142A Displaced intertrochanteric fracture of left femur, initial encounter for closed fracture (principal); D62 Acute posthemorrhagic anemia; E44.0 Moderate protein-calorie malnutrition; Z68.1 Body mass index [BMI] 19.9 or less, adult; D72.829 Elevated white blood cell count, unspecified; I10 Essential (primary) hypertension; K59.00 Constipation, unspecified; G31.84 Mild cognitive impairment of uncertain or unknown etiology; M06.9 Rheumatoid arthritis, unspecified; F41.1 Generalized anxiety disorder; E78.5 Hyperlipidemia, unspecified; E87.5 Hyperkalemia; M81.0 Age-related osteoporosis without current pathological fracture; Z60.2 Problems related to living alone; R53.81 Other malaise; M19.90 Unspecified osteoarthritis, unspecified site; D72.823 Leukemoid reaction; E83.42 Hypomagnesemia; E03.9 Hypothyroidism, unspecified; F17.210 Nicotine dependence, cigarettes, uncomplicated; W18.39XA Other fall on same level, initial encounter; Y93.89 Activity, other specified; Y92.89 Other specified places as the place of occurrence of the external cause; Y99.8 Other external cause status; Z98.49 Cataract extraction status, unspecified eye
CPT/HCPCS: 10112